=== PATIENT | female | born 1950 | race Caucasian/White ===

== ENCOUNTER 2020-05-19 07:44 | Observation (INO) | payer MEDICARE ==
[2020-05-19] MEDS ORDERED: SODIUM CHLORIDE 0.9% 500 ML 500 ML IV STA ×2 (07:56→11:42)
[2020-05-19] MEDS ORDERED: SODIUM CHLORIDE 0.9% 1,000 ML IV STA ×2 (07:56→09:31)
--- NOTE | 2020-05-19 07:57 | ED ---
Dizziness HPI - General Chief Complaint: Dizziness Stated Complaint: dizziness Time Seen by Provider: 05/19/20 07:48 Source: patient, family, RN notes reviewed, old records reviewed Mode of arrival: wheelchair Limitations: no limitations - History of Present Illness Initial Comments: This is a 69-year-old female DF for dizziness. Patient has vertiginous type symptoms from spinning. She woke up today normal femoral 6 AM and at 70 and patient felt the room was spinning little bit she was lightheaded, during this time she was on the phone with her daughter, she felt a little wobbly on her feet little woozy did not have feeling of passing out. No headache chest pain, a little off balance while walking but otherwise no significant complaints no ne w medications patient takes no medications no medical history patient does not see a doctor she has been healthy her entire life no high blood pressure cholesterol diabetes, no recent fevers nausea vomiting or diarrhea. No drugs or alcohol MD Complaint: dizziness, difficulty walking -: hour(s) Timing: gradual onset Description: "room spinning", off-balance History of Same: No History of Trauma: No Severity: mild Improves With: remaining still Worsens With: movement, position Associated Symptoms: denies other symptoms - Related Data Home Medications Medication Instructions Recorded Confirmed Multivitamins, Thera [Multivitamin 1 tab PO DAILY 05/19/20 05/19/20 (formulary)] Allergies Allergy/AdvReac Type Severity Reaction Status Date / Time peanut Allergy Anaphylaxis Verified 05/19/20 09:27 Review of Systems ROS Statement: Those systems with pertinent positive or pertinent negative responses have been documented in the HPI. ROS Other: All systems not noted in ROS Statement are negative. Past Medical History Past Medical History: GI Bleed History of Any Multi-Drug Resistant Organisms: None Reported Past Surgical History: Section, Hysterectomy Past Anesthesia/Blood Transfusion Reactions: No Reported Reaction Smoking Status: Never smoker Past Alcohol Use History: Occasional Past Drug Use History: None Reported - Past Family History Mother Family Medical History: Cancer, Deep Vein Thrombosis (DVT) Additional Family Medical History / Comment(s): lymphoma Father Family Medical History: Cancer General Exam Limitations: no limitations General appearance: alert, in no apparent distress Head exam: Present: atraumatic, normocephalic, normal inspection Eye exam: Present: normal appearance, PERRL, EOMI. Absent: scleral icterus, conjunctival injection, periorbital swelling ENT exam: Present: normal exam, mucous membranes moist Neck exam: Present: normal inspection. Absent: tenderness, meningismus, lymphadenopathy Respiratory exam: Present: normal lung sounds bilaterally. Absent: respiratory distress, wheezes, rales, rhonchi, stridor Cardiovascular Exam: Present: regular rate, normal rhythm, normal heart sounds. Absent: systolic murmur, diastolic murmur, rubs, gallop, clicks GI/Abdominal exam: Present: soft, normal bowel sounds. Absent: distended, tenderness, guarding, rebound, rigid Extremities exam: Present: normal inspection, full ROM, normal capillary refill. Absent: tenderness, pedal edema, joint swelling, calf tenderness Back exam: Present: normal inspection Neurological exam: Present: alert, oriented X3, CN II-XII intact Psychiatric exam: Present: normal affect, normal mood Skin exam: Present: warm, dry, intact, normal color. Absent: rash Course Vital Signs 05/19/20 05/19/20 05/19/20 07:46 08:29 08:30 Pulse Rate 107 H 83 87 Respiratory 16 13 13 Rate Blood Pressure 157/93 O2 Sat by Pulse 99 100 Oximetry 05/19/20 05/19/20 05/19/20 09:00 09:30 10:00 Pulse Rate 96 85 82 Respiratory 16 25 H 13 Rate Blood Pressure 136/70 149/82 146/86 O2 Sat by Pulse 100 98 97 Oximetry 05/19/20 05/19/20 05/19/20 10:30 11:00 11:30 Pulse Rate 81 79 85 Respiratory 14 Rate Blood Pressure 141/77 127/69 128/64 O2 Sat by Pulse 97 99 Oximetry - Reevaluation(s) Reevaluation #1: 05/19/20 08:33 Medical records reviewed Reevaluation #2: 05/19/20 08:33 Patient is improved here symptomatically Reevaluation #3: 05/19/20 11:43 Patient rechecked here after multiple therapeutic interventions, no improvement still very dizziness with change of position - Consultations Consultation #1: Spoke with Dr. Bauer who agrees to admit this patient EKG Findings - EKG Comments: EKG Findings:: EKG shows sinus rhythm of 86 [place] 132 QRS 92 QTC 440 Medical Decision Making - Medical Decision Making 69 female DF for evaluation patient resents today for evaluation regards to dizziness dehydration for ago. CT is negative patient will be admitted that she is unable to ambulate here in the ER - Lab Data Result diagrams: 05/19/20 08:15 05/19/20 08:15 Lab Results 05/19/20 05/19/20 05/19/20 Range/Units 08:15 08:15 08:15 WBC 7.0 (3.8-10.6) k/uL RBC 4.71 (3.80-5.40) m/uL Hgb 13.6 (11.4-16.0) gm/dL Hct 42.3 (34.0-46.0) % MCV 89.9 (80.0-100.0) fL MCH 28.8 (25.0-35.0) pg MCHC 32.0 (31.0-37.0) g/dL RDW 12.2 (11.5-15.5) % Plt Count 250 (150-450) k/uL Neutrophils % 62 % Lymphocytes % 27 % Monocytes % 7 % Eosinophils % 2 % Basophils % 1 % Neutrophils # 4.3 (1.3-7.7) k/uL Lymphocytes # 1.9 (1.0-4.8) k/uL Monocytes # 0.5 (0-1.0) k/uL Eosinophils # 0.1 (0-0.7) k/uL Basophils # 0.1 (0-0.2) k/uL PT 10.0 (9.0-12.0) sec INR 1.0 (<1.2) APTT 26.5 (22.0-30.0) sec Sodium 137 (137-145) mmol/L Potassium 3.9 (3.5-5.1) mmol/L Chloride 104 (98-107) mmol/L Carbon Dioxide 27 (22-30) mmol/L Anion Gap 6 mmol/L BUN 16 (7-17) mg/dL Creatinine 0.86 (0.52-1.04) mg/dL Est GFR (CKD-EPI)AfAm 80 (>60 ml/min/1.73 sqM) Est GFR (CKD-EPI)NonAf 70 (>60 ml/min/1.73 sqM) Glucose 178 H (74-99) mg/dL Lactic Ac Sepsis Rflx Plasma Lactic Acid Can (0.7-2.0) mmol/L Calcium 9.3 (8.4-10.2) mg/dL Phosphorus 2.9 (2.5-4.5) mg/dL Magnesium 1.8 (1.6-2.3) mg/dL Total Bilirubin 1.0 (0.2-1.3) mg/dL AST 22 (14-36) U/L ALT 16 (4-34) U/L Alkaline Phosphatase 86 (38-126) U/L Creatine Kinase 41 (30-135) U/L Troponin I (0.000-0.034) ng/mL NT-Pro-B Natriuret Pep pg/mL Total Protein 7.0 (6.3-8.2) g/dL Albumin 4.1 (3.5-5.0) g/dL TSH 0.888 (0.465-4.680) mIU/L Blood Type Blood Type Recheck Bld Type Recheck Status Antibody Screen Spec Expiration Date 05/19/20 05/19/20 05/19/20 Range/Units 08:15 08:15 08:15 WBC (3.8-10.6) k/uL RBC (3.80-5.40) m/uL Hgb (11.4-16.0) gm/dL Hct (34.0-46.0) % MCV (80.0-100.0) fL MCH (25.0-35.0) pg MCHC (31.0-37.0) g/dL RDW (11.5-15.5) % Plt Count (150-450) k/uL Neutrophils % % Lymphocytes % % Monocytes % % Eosinophils % % Basophils % % Neutrophils # (1.3-7.7) k/uL Lymphocytes # (1.0-4.8) k/uL Monocytes # (0-1.0) k/uL Eosinophils # (0-0.7) k/uL Basophils # (0-0.2) k/uL PT (9.0-12.0) sec INR (<1.2) APTT (22.0-30.0) sec Sodium (137-145) mmol/L Potassium (3.5-5.1) mmol/L Chloride (98-107) mmol/L Carbon Dioxide (22-30) mmol/L Anion Gap mmol/L BUN (7-17) mg/dL Creatinine (0.52-1.04) mg/dL Est GFR (CKD-EPI)AfAm (>60 ml/min/1.73 sqM) Est GFR (CKD-EPI)NonAf (>60 ml/min/1.73 sqM) Glucose (74-99) mg/dL Lactic Ac Sepsis Rflx Plasma Lactic Acid Can 2.4 H* (0.7-2.0) mmol/L Calcium (8.4-10.2) mg/dL Phosphorus (2.5-4.5) mg/dL Magnesium (1.6-2.3) mg/dL Total Bilirubin (0.2-1.3) mg/dL AST (14-36) U/L ALT (4-34) U/L Alkaline Phosphatase (38-126) U/L Creatine Kinase (30-135) U/L Troponin I <0.012 (0.000-0.034) ng/mL NT-Pro-B Natriuret Pep 30 pg/mL Total Protein (6.3-8.2) g/dL Albumin (3.5-5.0) g/dL TSH (0.465-4.680) mIU/L Blood Type Blood Type Recheck Bld Type Recheck Status Antibody Screen Spec Expiration Date 05/19/20 05/19/20 Range/Units 08:15 08:55 WBC (3.8-10.6) k/uL RBC (3.80-5.40) m/uL Hgb (11.4-16.0) gm/dL Hct (34.0-46.0) % MCV (80.0-100.0) fL MCH (25.0-35.0) pg MCHC (31.0-37.0) g/dL RDW (11.5-15.5) % Plt Count (150-450) k/uL Neutrophils % % Lymphocytes % % Monocytes % % Eosinophils % % Basophils % % Neutrophils # (1.3-7.7) k/uL Lymphocytes # (1.0-4.8) k/uL Monocytes # (0-1.0) k/uL Eosinophils # (0-0.7) k/uL Basophils # (0-0.2) k/uL PT (9.0-12.0) sec INR (<1.2) APTT (22.0-30.0) sec Sodium (137-145) mmol/L Potassium (3.5-5.1) mmol/L Chloride (98-107) mmol/L Carbon Dioxide (22-30) mmol/L Anion Gap mmol/L BUN (7-17) mg/dL Creatinine (0.52-1.04) mg/dL Est GFR (CKD-EPI)AfAm (>60 ml/min/1.73 sqM) Est GFR (CKD-EPI)NonAf (>60 ml/min/1.73 sqM) Glucose (74-99) mg/dL Lactic Ac Sepsis Rflx Y Plasma Lactic Acid Can (0.7-2.0) mmol/L Calcium (8.4-10.2) mg/dL Phosphorus (2.5-4.5) mg/dL Magnesium (1.6-2.3) mg/dL Total Bilirubin (0.2-1.3) mg/dL AST (14-36) U/L ALT (4-34) U/L Alkaline Phosphatase (38-126) U/L Creatine Kinase (30-135) U/L Troponin I (0.000-0.034) ng/mL NT-Pro-B Natriuret Pep pg/mL Total Protein (6.3-8.2) g/dL Albumin (3.5-5.0) g/dL TSH (0.465-4.680) mIU/L Blood Type A Negative Blood Type Recheck A Neg Bld Type Recheck Status No Antibody Screen NEGATIVE Spec Expiration Date 05/22/2020 - 2315 - Radiology Data Radiology results: report reviewed (CT brain is negative for acute disease), image reviewed Disposition Clinical Impression: Dehydration, Vertigo Disposition: ADMITTED IP TO THIS [facility] Condition: Good Is patient prescribed a controlled substance at d/c from ED?: No Referrals: Rome Bauer Jr, [Primary Care Provider] - 1-2 days
[2020-05-19] MEDS ORDERED: ONDANSETRON 4 MG/2 ML VIAL IVP STA (08:06)
[2020-05-19] MEDS ORDERED: MECLIZINE 12.5 MG TAB PO STA (08:06)
[2020-05-19 08:35] LABS: Basophils # (A) 0.1 k/uL (0-0.2); Basophils % (A) 1 %; Eosinophils # (A) 0.1 k/uL (0-0.7); Eosinophils % (A) 2 %; HCT 42.3 % (34.0-46.0); HGB 13.6 gm/dL (11.4-16.0); Lymphocytes # (A) 1.9 k/uL (1.0-4.8); Lymphocytes % (A) 27 %; MCH 28.8 pg (25.0-35.0); MCV 89.9 fL (80.0-100.0); Mean Platelet Volume 7.7; Monocytes # (A) 0.5 k/uL (0-1.0); Monocytes % (A) 7 %; Neutrophils # (A) 4.3 k/uL (1.3-7.7); Neutrophils % (A) 62 %; Platelet Count 250 k/uL (150-450); RBC 4.71 m/uL (3.80-5.40); RDW 12.2 % (11.5-15.5)
[2020-05-19 08:43] LABS: Partial Thromboplastin Time 26.5 sec (22.0-30.0)
[2020-05-19 08:52] LABS: Albumin 4.1 g/dL (3.5-5.0); Calcium 9.3 mg/dL (8.4-10.2); Magnesium 1.8 mg/dL (1.6-2.3); Phosphorus 2.9 mg/dL (2.5-4.5); Potassium 3.9 mmol/L (3.5-5.1)
--- NOTE | 2020-05-19 09:27 | CT ---
EXAMINATION TYPE: CT brain wo con DATE OF EXAM: 05/19/2020 COMPARISON: MR brain 09/26/2010 HISTORY: Dizziness CT DLP: 1099.1 mGycm Automated exposure control for dose reduction was used. Helical imaging through the brain FINDINGS: The calvarium is intact. Paranasal sinuses and mastoid air cells are well aerated. Orbits show symmet steffi appearance. There are cerebral vascular calcifications. There is no hemorrhage or hydrocephalus. Patchy low attenuation in the periventricular white matter is noted. IMPRESSION: NONSPECIFIC WHITE MATTER DEMYELINATION. NO EVIDENT ACUTE ABNORMALITY. CONSIDER BRAIN MRI FOR ADDITION AL EVALUATION.
[2020-05-19] MEDS ORDERED: METOCLOPRAMIDE 5 MG/ML 2 ML VIAL IVP STA (09:37)
[2020-05-19] MEDS ORDERED: diphenhydrAMINE 50 MG/ML 1 ML VIAL IVP STA (09:37)
[2020-05-19] MEDS ORDERED: PANTOPRAZOLE 40 MG/10 ML VIAL IVP STA (09:37)
[2020-05-19] MEDS ORDERED: diphenhydrAMINE 50 MG/ML 1 ML VIAL IVP PRN (11:42)
[2020-05-19] MEDS ORDERED: DIAZEPAM 5 MG/ML 2 ML INJ IVP PRN (11:42)
[2020-05-19] MEDS ORDERED: ONDANSETRON 4 MG/2 ML VIAL IVP PRN (11:42)
[2020-05-19 12:33] LABS: Appearance,Urine Clear (Clear); Bacteria,Urine Rare /hpf; Bilirubin,Urine Negative (Negative); Blood,Urine Negative (Negative); Color,Urine Yellow; Glucose,Urine (UA) Negative (Negative); Ketones,Urine Trace (Negative); Leukocyte Esterase,Urine Small (Negative); Mucus,Urine Occasional /hpf; Nitrite,Urine Negative (Negative); Protein,Urine Negative (Negative); Specific Gravity,Urine 1.013 (1.001-1.035); Urobilinogen,Urine <2.0 mg/dL (<2.0); WBC,Urine 3 /hpf (0-5)
[2020-05-20 05:28] VITALS: RESP 18
[2020-05-20] MEDS ORDERED: PANTOPRAZOLE 40 MG/10 ML VIAL IVP SCH (09:15)
[2020-05-20] MEDS ORDERED: Potassium Replacement Protocol 1 EACH MISC MISCELLANE PRN (10:38)
[2020-05-20] MEDS ORDERED: Magnesium Replacement Protocol 1 EACH MISC MISCELLANE PRN (10:39)
[2020-05-20 11:41] LABS: Glucose,Whole Blood 90 mg/dL (75-99)
[2020-05-20 11:57] VITALS: TEMP 98.6
[2020-05-20 12:01] VITALS: BP 144/78; PULSE 92
[2020-05-20] MEDS ORDERED: INSULIN ASPART (NovoLOG) 100 UNIT/ML VIAL SQ SCH (12:30)
--- NOTE | 2020-05-20 13:05 | P.HPIM ---
History of Present Illness H&P Date: 05/20/20 Chief Complaint: Dizziness History and Physical and Discharge Summary This 69-year-old female presents to the ER with complaints of gradual onset of dizziness, "woozy ", worsened by position changes-turning head to side to side, worse on right. Patient had woken up at around 0500, at 0700 patient was sitting, talking to daughter on telephone when symptoms gradually occurred. Denies near syncope or syncope. Denies chest pain, palpitations or shortness of breath. Denies headache or focal deficit. No new medications, patient is only on a multivitamin. Denies fever or chills. Denies cough congestion. Denies nausea vomiting or diarrhea. Denies abdominal pain. Denies smoking, recrea tional drugs, alcohol use. Brain CT reported nonspecific white matter demylemination, no acute abnormality. EKG reported normal sinus rhythm, normal troponin. Vital signs stable, Afebrile, normal WBC, neutrophils. Hematology, coagulation unremarkable. Sodium 137, potassium 3.9, BUN 60, creatinine 0.86, glucose 178( patient had consumed a yogurt prior to arrival), lactic acid 2.4- now 1.3 after IV fluid hydration, magnesium 1.8. UA reported rare bacteria, small leukocytes and trace ketones. Review of Systems ROS Statement: Those systems with pertinent positive or pertinent negative responses have been documented in the HPI. ROS Other: All systems not noted in ROS Statement are negative. Past Medical History Past Medical History: GI Bleed Additional Past Medical History / Comment(s): Hemorrhoids History of Any Multi-Drug Resistant Organisms: None Reported Past Surgical History: Section, Hysterectomy Additional Past Surgical History / Comment(s): colonoscopy Past Anesthesia/Blood Transfusion Reactions: No Reported Reaction Past Psychological History: No Psychological Hx Reported Additional Psychological History / Comment(s): Pt resides with her spouse and their son who has Down's syndrome and is fairlly high functioning. Pt is independent. Smoking Status: Never smoker Past Alcohol Use History: Occasional Past Drug Use History: None Reported - Past Family History Mother Family Medical History: Cancer, Deep Vein Thrombosis (DVT) Additional Family Medical History / Comment(s): lymphoma. Mother is 95.5 yrs old. Father Family Medical History: Cancer Additional Family Medical History / Comment(s): Lymphoma. Pt believes he from complications of his lymphoma at the age of 71 yrs. Medications and Allergies Home Medications Medication Instructions Recorded Confirmed Type Multivitamins, Thera [Multivitamin 1 tab PO DAILY 05/19/20 05/19/20 History (formulary)] Meclizine [Antivert] 12.5 mg PO Q8HR PRN #15 tablet 05/20/20 Rx Sulfamethox-Tmp 400-80Mg [Bactrim 1 tab PO Q12HR 5 Days #10 tablet 05/20/20 Rx SS 400-80 mg] Allergies Allergy/AdvReac Type Severity Reaction Status Date / Time peanut Allergy Anaphylaxis Verified 05/19/20 09:27 Physical Exam Vitals: Vital Signs Temp Pulse Pulse Resp BP BP Pulse Ox 05/20/20 05:00 98.1 F 87 18 128/72 98 05/19/20 22:49 16 05/19/20 20:41 98.2 F 94 16 133/74 97 05/19/20 15:47 99 05/19/20 12:30 98.0 F 83 18 125/64 97 05/19/20 12:00 84 18 137/64 97 05/19/20 11:30 85 128/64 99 05/19/20 11:00 79 127/69 97 05/19/20 10:30 81 14 141/77 05/19/20 10:00 82 13 146/86 97 05/19/20 09:30 85 25 H 149/82 98 05/19/20 09:00 96 16 136/70 100 Intake and Output 05/19/20 05/20/20 05/20/20 22:59 06:59 14:59 Intake Total 390 Balance 390 Intake: Intake, IV Titration 390 Amount Sodium Chloride 0.9% 1, 390 000 ml @ 130 mls/hr IV . Q7H42M STA Rx#:[id number] Other: Voiding Method Toilet # Bowel Movements 0 0 PHYSICAL EXAM: VITAL SIGNS: As above GENERAL: Sitting up in bed, no acute distress HEENT: Conjunctivae normal. eyes normal. NECK: No JVD. No thyroid enlargement. No LNs CARDIOVASCULAR: S1, S2 regular. No murmur RESPIRATION: Breath sounds diminished in the bases. No rhonchi or crackles. No bronchial breathing. ABDOMEN: Soft, nontender . No guarding. no masses palpable. No ascites, No hepatosplenomegaly.Bowel sounds heard. LEGS: No edema. no swelling PSYCHIATRY: Alert and oriented X3, mood and affect normal. NERVOUS SYSTEM: Cranial N 2-12 grossly normal. Moves all 4 limbs. No focal deficits. Strength and sensation grossly intact.. Skin: Warm and dry, no rash Lymphatic system. No LN neck axilla. Results CBC & Chem 7: 05/19/20 08:15 05/19/20 08:15 Labs: Abnormal Lab Results - Last 24 Hours (Table) 05/19/20 05/19/20 05/19/20 Range/Units 08:15 08:15 08:15 Glucose 178 H (74-99) mg/dL Plasma Lactic Acid Can 2.4 H* (0.7-2.0) mmol/L Urine Ketones Trace H (Negative) Ur Leukocyte Esterase Small H (Negative) Urine Bacteria Rare H (None) /hpf Urine Mucus Occasional H (None) /hpf Thrombosis Risk Factor Assmnt - Choose All That Apply Any of the Below Risk Factors Present?: Yes Other Risk Factors: Yes Each Risk Factor Represents 2 Points: Age 61-74 years Other congenital or acquired thrombophilia - If yes, enter type in comment: No Thrombosis Risk Factor Assessment Total Risk Factor Score: 2 Thrombosis Risk Factor Assessment Level: Low Risk Assessment and Plan Assessment: Dizziness, etiology unclear,related to dehydration, possible benign positional vertigo, possible infection. Orthostatic hypotension ruled out. Dehydration Possible mild Acute UTI, repeat UA in clinic Lactic acidosis, resolved with IV fluid hydration Possible new onset diabetes mellitus type 2, elevated blood sugar on admission, A1c pending.FBS X2 in clinic. No family history of diabetes. History of GI bleed, hemorrhoids Plan: Continue current medication regime, monitoring and symptomatic treatment. Orthostatic vital signs-neck, remote telemetry, hemoglobin A1c ordered. Close monitoring of blood sugars with Accu-Cheks before meals and at bedtime/sliding scale- Follow-up Accu-Chek 90. Pending patient's ability to safely ambulate, patient will be discharged home in stable condition with guarded prognosis on empiric antibiotics and possible Antivert when necessary. Plan a care discussed with patient at bedside who is in agreement with. The impression and plan of care has been dictated as directed. : I performed a history and examination of this patient, discussed the same with the dictator. I agree with the dictator's note ,documented as a scribe. Any additional findings or plans will be noted.
[2020-05-20 17:36] LABS: Hemoglobin A1C 5.5 % (4.0-6.0)
[2020-05-20] MEDS ORDERED: INSULIN DETEMIR (LEVEMIR) 100 UNIT/ML SYR SQ SCH (21:00)
[2020-05-21] MEDS ORDERED: PANTOPRAZOLE 40 MG TABLET PO SCH (07:30)
== END 2020-05-20 17:42 | disposition home or self-care (01) ==
LOC: EC 07:44 → 6NMEDSUR 11:42
PROVIDERS: ADMIT Family Medicine; ATTEND Family Medicine
DX: E86.0 Dehydration (principal); R73.9 Hyperglycemia, unspecified; E87.2 Acidosis; Z87.19 Personal history of other diseases of the digestive system; Z90.710 Acquired absence of both cervix and uterus; Z98.891 History of uterine scar from previous surgery; Z80.7 Family history of other malignant neoplasms of lymphoid, hematopoietic and related tissues; Z79.899 Other long term (current) drug therapy; Z88.0 Allergy status to penicillin
CPT/HCPCS: 96361 ×3; 96374; 96375; 99285; 36415; 93005; 86900; 86901; 83880; 80053; 82550; 83605; 83735; 84100; 84443; 84484; 85025; 85610; 85730; 86850; 81001; 83036; 70450; G0378 ×2; J1200; J2765; J2405; C9113